=== PATIENT | female | born 1990 | race Caucasian/White ===

== ENCOUNTER 2017-12-08 20:25 | Emergency (ER) | payer OTHER ==
[2017-12-08 20:32] VITALS: RESP 18; TEMP 98.3
[2017-12-08] MEDS ORDERED: SODIUM CHLORIDE 0.9% 1,000 ML IV STA (21:05)
--- NOTE | 2017-12-08 21:32 | ED ---
Chest Pain HPI - General Chief Complaint: Chest Pain Stated Complaint: chest pressure/arm tingling Time Seen by Provider: 12/08/17 20:47 Source: patient, RN notes reviewed, old records reviewed Mode of arrival: ambulatory Limitations: no limitations - History of Present Illness Initial Comments: This is a 19-year-old female the ER for evaluation. Today she presents for evaluation regards to chest pain left-sided chest pain left arm tingling. Patient also has infection or area of redness and erythema right breast. She has no medical history does not smoke takes no significant other medications. No travel history no sick contacts no heart risk factors. Patient is denying chest pain or tingling in her left arm now. She states she is on antibiotics for abscess or infection to right breast. MD Complaint: chest pain -: days(s) (1) Onset: during rest Pain Location: substernal, left chest Pain Radiation: LUE (Paresthesia) Severity: mild Severity scale (1-10): 3 Quality: tightness Consistency: intermittent Improves With: nothing Worsens With: exertion - Related Data Home Medications Medication Instructions Recorded Confirmed Cholecalciferol [Vitamin D3] 1,000 unit PO DAILY 12/08/17 12/08/17 Cranberry Fruit Extract [Cranberry] 200 mg PO DAILY 12/08/17 12/08/17 Ferrous Sulfate [Feosol] 325 mg PO DAILY 12/08/17 12/08/17 Minocycline HCl 100 mg PO BID 12/08/17 12/08/17 Multivitamin [Multivitamins Adult 1 tab PO DAILY 12/08/17 12/08/17 Gummies] Previous Rx's Medication Instructions Recorded Sulfamethox-Tmp 800-160Mg [Bactrim 2 tab PO BID #40 tab 12/08/17 DS 800-160 mg] Allergies Allergy/AdvReac Type Severity Reaction Status Date / Time Latex, Natural Rubber Allergy Rash/Hives Verified 12/08/17 20:45 Review of Systems ROS Statement: Those systems with pertinent positive or pertinent negative responses have been documented in the HPI. ROS Other: All systems not noted in ROS Statement are negative. EKG Findings - EKG Comments: EKG Findings:: EKG shows sinus rhythm rate of 70, HI 146, QRS 70, QTc 442 Past Medical History Past Medical History: Asthma History of Any Multi-Drug Resistant Organisms: None Reported Past Surgical History: No Surgical Hx Reported Past Anesthesia/Blood Transfusion Reactions: No Reported Reaction Past Psychological History: No Psychological Hx Reported Smoking Status: Former smoker Past Alcohol Use History: Rare Past Drug Use History: None Reported General Exam - General Exam Comments Initial Comments: Right-sided breast cellulitis, folliculitis Limitations: no limitations General appearance: alert, in no apparent distress Head exam: Present: atraumatic, normocephalic, normal inspection Eye exam: Present: normal appearance, PERRL, EOMI. Absent: scleral icterus, conjunctival injection, periorbital swelling ENT exam: Present: normal exam, mucous membranes moist Neck exam: Present: normal inspection. Absent: tenderness, meningismus, lymphadenopathy Respiratory exam: Present: normal lung sounds bilaterally. Absent: respiratory distress, wheezes, rales, rhonchi, stridor Cardiovascular Exam: Present: regular rate, normal rhythm, normal heart sounds. Absent: systolic murmur, diastolic murmur, rubs, gallop, clicks GI/Abdominal exam: Present: soft, normal bowel sounds. Absent: distended, tenderness, guarding, rebound, rigid Extremities exam: Present: normal inspection, full ROM, normal capillary refill. Absent: tenderness, pedal edema, joint swelling, calf tenderness Back exam: Present: normal inspection Neurological exam: Present: alert, oriented X3, CN II-XII intact Psychiatric exam: Present: normal affect, normal mood Skin exam: Present: warm, dry, intact, normal color. Absent: rash Course Vital Signs 12/08/17 12/08/17 20:26 21:48 Temperature 98.3 F Pulse Rate 83 63 Respiratory 18 18 Rate Blood Pressure 137/94 126/79 O2 Sat by Pulse 97 98 Oximetry - Reevaluation(s) Reevaluation #1: 12/08/17 22:15 Patient remains without any significant acute symptoms Reevaluation #2: 12/08/17 22:15 Patient will switch antibiotics and can be discharged home Reevaluation #3: 12/08/17 22:15 Studies Chest x-rays negative for acute disease Chest Pain MDM - Core Measures AMI Core Measures Followed: No - MDM 19 female the ER with no risk factors for heart disease coming in with chest pain. Patient can be discharged home, patient will switch antibiotics for control of right breast cellulitis Disposition Clinical Impression: Chest pain, Cellulitis of right breast Disposition: HOME SELF-CARE Condition: Good Instructions: Chest Pain (ED), Folliculitis (ED) Prescriptions: Sulfamethox-Tmp 800-160Mg [Bactrim DS 800-160 mg] 2 tab PO BID #40 tab Is patient prescribed a controlled substance at d/c from ED?: No Referrals: Davida Nath MD [Primary Care Provider] - 1-2 days
[2017-12-08 21:34] LABS: Basophils # (A) 0.1 k/uL (0-0.2); Basophils % (A) 1 %; Eosinophils # (A) 0.3 k/uL (0-0.7); Eosinophils % (A) 3 %; HCT 42.9 % (34.0-46.0); HGB 13.4 gm/dL (11.4-16.0); Lymphocytes # (A) 3.1 k/uL (1.0-4.8); Lymphocytes % (A) 36 %; MCH 27.8 pg (25.0-35.0); MCHC 31.3 g/dL (31.0-37.0); MCV 88.9 fL (80.0-100.0); Mean Platelet Volume 8.5; Monocytes # (A) 0.4 k/uL (0-1.0); Monocytes % (A) 4 %; Neutrophils # (A) 4.6 k/uL (1.3-7.7); Neutrophils % (A) 54 %; Platelet Count 210 k/uL (150-450); RBC 4.83 m/uL (3.80-5.40); RDW 12.5 % (11.5-15.5); WBC 8.5 k/uL (3.8-10.6)
--- NOTE | 2017-12-08 21:42 | XR ---
EXAMINATION TYPE: XR chest 2V DATE OF EXAM: 12/08/2017 COMPARISON: NONE HISTORY: Chest pressure TECHNIQUE: Frontal and lateral views of the chest are obtained. FINDINGS: Heart and mediastinum are normal. Lungs are clear. Diaphragm is normal. Bony thorax is int act. Pulmonary vascularity is normal. There are chest leads. IMPRESSION: Normal chest
[2017-12-08 21:45] LABS: Creatine Kinase 154 U/L (30-135)
[2017-12-08 21:47] LABS: ALT 21 U/L (9-52); AST 20 U/L (14-36); Alkaline Phosphatase 46 U/L (38-126); Anion Gap 7 mmol/L; Blood Urea Nitrogen 12 mg/dL (7-17); Calcium 8.9 mg/dL (8.4-10.2); Carbon Dioxide 25 mmol/L (22-30); Chloride 109 mmol/L (98-107); Glucose 94 mg/dL (74-99); Lipase 48 U/L (23-300); Magnesium 2.2 mg/dL (1.6-2.3); Potassium 3.8 mmol/L (3.5-5.1); Sodium 141 mmol/L (137-145); Total Bilirubin 0.3 mg/dL (0.2-1.3); Total Protein 6.5 g/dL (6.3-8.2)
[2017-12-08 21:50] VITALS: BP 126/79; PULSE 63
[2017-12-08 21:58] LABS: Creatine Kinase MB 0.9 ng/mL (0.0-2.4); Troponin I <0.012 ng/mL (0.000-0.034)
== END 2017-12-08 22:30 | disposition home or self-care (01) ==
LOC: EC 20:25
DX: N61.0 Mastitis without abscess (principal); R07.2 Precordial pain; J45.909 Unspecified asthma, uncomplicated; Z87.891 Personal history of nicotine dependence; Z91.040 Latex allergy status
CPT/HCPCS: 36415; 71046; 80053; 82550; 82553; 83690; 83735; 83880; 84484; 85025; 85610; 85730; 93005; 96360; 99285

== ENCOUNTER 2018-01-28 19:24 | Emergency (ER) | payer OTHER ==
[2018-01-28 20:14] VITALS: PULSE 77
[2018-01-28 21:19] LABS: Basophils # (A) 0.1 k/uL (0-0.2); Basophils % (A) 1 %; Eosinophils # (A) 0.2 k/uL (0-0.7); Eosinophils % (A) 2 %; HCT 41.7 % (34.0-46.0); HGB 13.5 gm/dL (11.4-16.0); Lymphocytes # (A) 2.5 k/uL (1.0-4.8); Lymphocytes % (A) 26 %; MCH 28.1 pg (25.0-35.0); MCHC 32.5 g/dL (31.0-37.0); MCV 86.4 fL (80.0-100.0); Monocytes # (A) 0.5 k/uL (0-1.0); Monocytes % (A) 5 %; Neutrophils % (A) 65 %; Platelet Count 245 k/uL (150-450); RBC 4.82 m/uL (3.80-5.40); RDW 12.7 % (11.5-15.5); WBC 9.3 k/uL (3.8-10.6)
[2018-01-28 21:24] LABS: Appearance,Urine Clear (Clear); Bilirubin,Urine Negative (Negative); Blood,Urine Negative (Negative); Color,Urine Yellow; Glucose,Urine (UA) Negative (Negative); Ketones,Urine Negative (Negative); Leukocyte Esterase,Urine Trace (Negative); Mucus,Urine Rare /hpf; Nitrite,Urine Negative (Negative); Protein,Urine Negative (Negative); RBC,Urine 1 /hpf (0-5); Specific Gravity,Urine 1.021 (1.001-1.035); Squamous Epithelial Cell,Urine 2 /hpf (0-4); Urobilinogen,Urine <2.0 mg/dL (<2.0); WBC,Urine 1 /hpf (0-5)
[2018-01-28 21:29] LABS: ALT 27 U/L (9-52); AST 19 U/L (14-36); Albumin 4.3 g/dL (3.5-5.0); Alkaline Phosphatase 50 U/L (38-126); Anion Gap 8 mmol/L; Blood Urea Nitrogen 16 mg/dL (7-17); Calcium 9.4 mg/dL (8.4-10.2); Carbon Dioxide 27 mmol/L (22-30); Chloride 106 mmol/L (98-107); Glucose 98 mg/dL (74-99); Potassium 3.9 mmol/L (3.5-5.1); Sodium 141 mmol/L (137-145); Total Bilirubin 0.4 mg/dL (0.2-1.3); Total Protein 6.9 g/dL (6.3-8.2)
--- NOTE | 2018-01-28 22:04 | ED ---
Recheck HPI - General Chief Complaint: Recheck/Abnormal Lab/Rx Stated Complaint: Nausea Time Seen by Provider: 01/28/18 20:25 Source: patient Mode of arrival: ambulatory Limitations: no limitations - History of Present Illness Initial Comments: 27-year-old female patient presents to the emergency department today for evaluation of bilateral breast pain, nausea, and lightheadedness. Patient states that she has been having the pain to her bilateral breasts for the last couple of months. States feels like a sharp shooting pain. States that she feels presence of a lump to the left upper breast. Patient states that she does have an appointment with her [facility] in March however didn't feel that she could wait that long especially since she started having nausea and some lightheadedness intermittently. Patient denies any the symptoms today. She denies any chance of , states that she does have a control implant to the left arm. She denies any abnormal vaginal bleeding or discharge. Denies any abdominal pain, constipation, or diarrhea. Denies any dark, black, or bloody stools. Denies any chest pain or shortness of breath. Patient denies any recent rash, fever, chills, back pain, numbness, tingling, dizziness, weakness, hematuria, dysuria, urinary urgency, urinary frequency, headache, visual changes, or any other complaints. - Related Data Home Medications Medication Instructions Recorded Confirmed Cholecalciferol [Vitamin D3] 1,000 unit PO DAILY 12/08/17 12/08/17 Cranberry Fruit Extract [Cranberry] 200 mg PO DAILY 12/08/17 12/08/17 Ferrous Sulfate [Feosol] 325 mg PO DAILY 12/08/17 12/08/17 Minocycline HCl [Minocin] 100 mg PO BID 12/08/17 12/08/17 Multivitamin [Multivitamins Adult 1 tab PO DAILY 12/08/17 12/08/17 Gummies] Previous Rx's Medication Instructions Recorded Sulfamethox-Tmp 800-160Mg [Bactrim 2 tab PO BID #40 tab 12/08/17 DS 800-160 mg] Ondansetron [Zofran ODT] 4 mg PO Q8HR PRN #10 tab 01/28/18 Allergies Allergy/AdvReac Type Severity Reaction Status Date / Time Latex, Natural Rubber Allergy Rash/Hives Verified 01/28/18 20:14 Review of Systems ROS Statement: Those systems with pertinent positive or pertinent negative responses have been documented in the HPI. ROS Other: All systems not noted in ROS Statement are negative. Past Medical History Past Medical History: Asthma History of Any Multi-Drug Resistant Organisms: None Reported Past Surgical History: No Surgical Hx Reported Past Anesthesia/Blood Transfusion Reactions: No Reported Reaction Past Psychological History: No Psychological Hx Reported Smoking Status: Former smoker Past Alcohol Use History: Rare Past Drug Use History: None Reported General Exam Limitations: no limitations General appearance: alert, in no apparent distress, other (This is a well- developed, well-nourished adult female patient in no acute distress. Vital signs upon presentation are temperature 98.4F, pulse 77, respirations 18, blood pressure 137/103, pulse ox 95% on room air.) Eye exam: Present: normal appearance, PERRL, EOMI. Absent: scleral icterus, conjunctival injection, periorbital swelling ENT exam: Present: normal exam, normal oropharynx, mucous membranes moist Respiratory exam: Present: normal lung sounds bilaterally. Absent: respiratory distress, wheezes, rales, rhonchi, stridor Cardiovascular Exam: Present: regular rate, normal rhythm, normal heart sounds. Absent: systolic murmur, diastolic murmur, rubs, gallop, clicks GI/Abdominal exam: Present: soft, normal bowel sounds. Absent: distended, tenderness, guarding, rebound, rigid Neurological exam: Present: alert, oriented X3, CN II-XII intact Psychiatric exam: Present: normal affect, normal mood Skin exam: Present: warm, dry, intact, normal color, other (Bilateral breast exam was performed. No presence of lumps, masses, or tenderness. Visual inspection revealed no erythema, abscess, or rash. No drainage from the nipples.). Absent: rash Course Vital Signs 01/28/18 20:11 Temperature 98.4 F Pulse Rate 77 Respiratory 18 Rate Blood Pressure 137/103 O2 Sat by Pulse 95 Oximetry Medical Decision Making - Medical Decision Making 27-year-old female patient presents to the emergency department today with complaints of bilateral breast pain, nausea, and lightheadedness. Physical examination is unremarkable. Labs reviewed and are unremarkable. EKG showed normal sinus rhythm with a sinus arrhythmia. Patient does have an appointment with [facility] in March as well as a breast ultrasound scheduled for that time. She is urged to keep this appointment. She is instructed to follow-up with her primary care physician to further discuss the nausea and lightheadedness. She' ll be given a prescription for Zofran. Return parameters were discussed in detail. She verbalizes understanding and agrees with this plan. - Lab Data Result diagrams: 01/28/18 21:10 01/28/18 21:10 Lab Results 01/28/18 01/28/18 01/28/18 Range/Units 20:34 20:34 21:10 WBC 9.3 (3.8-10.6) k/uL RBC 4.82 (3.80-5.40) m/uL Hgb 13.5 (11.4-16.0) gm/dL Hct 41.7 (34.0-46.0) % MCV 86.4 (80.0-100.0) fL MCH 28.1 (25.0-35.0) pg MCHC 32.5 (31.0-37.0) g/dL RDW 12.7 (11.5-15.5) % Plt Count 245 (150-450) k/uL Neutrophils % 65 % Lymphocytes % 26 % Monocytes % 5 % Eosinophils % 2 % Basophils % 1 % Neutrophils # 6.0 (1.3-7.7) k/uL Lymphocytes # 2.5 (1.0-4.8) k/uL Monocytes # 0.5 (0-1.0) k/uL Eosinophils # 0.2 (0-0.7) k/uL Basophils # 0.1 (0-0.2) k/uL Sodium (137-145) mmol/L Potassium (3.5-5.1) mmol/L Chloride (98-107) mmol/L Carbon Dioxide (22-30) mmol/L Anion Gap mmol/L BUN (7-17) mg/dL Creatinine (0.52-1.04) mg/dL Est GFR (CKD-EPI)AfAm (>60 ml/min/1.73 sqM) Est GFR (CKD-EPI)NonAf (>60 ml/min/1.73 sqM) Glucose (74-99) mg/dL Calcium (8.4-10.2) mg/dL Total Bilirubin (0.2-1.3) mg/dL AST (14-36) U/L ALT (9-52) U/L Alkaline Phosphatase (38-126) U/L Total Protein (6.3-8.2) g/dL Albumin (3.5-5.0) g/dL Urine Color Yellow Urine Appearance Clear (Clear) Urine pH 6.0 (5.0-8.0) Ur Specific Chandler 1.021 (1.001-1.035) Urine Protein Negative (Negative) Urine Glucose (UA) Negative (Negative) Urine Ketones Negative (Negative) Urine Blood Negative (Negative) Urine Nitrite Negative (Negative) Urine Bilirubin Negative (Negative) Urine Urobilinogen <2.0 (<2.0) mg/dL Ur Leukocyte Esterase Trace H (Negative) Urine RBC 1 (0-5) /hpf Urine WBC 1 (0-5) /hpf Ur Squamous Epith Cells 2 (0-4) /hpf Urine Mucus Rare H (None) /hpf Urine HCG, Qual Not Detected (Not Detectd) 01/28/18 Range/Units 21:10 WBC (3.8-10.6) k/uL RBC (3.80-5.40) m/uL Hgb (11.4-16.0) gm/dL Hct (34.0-46.0) % MCV (80.0-100.0) fL MCH (25.0-35.0) pg MCHC (31.0-37.0) g/dL RDW (11.5-15.5) % Plt Count (150-450) k/uL Neutrophils % % Lymphocytes % % Monocytes % % Eosinophils % % Basophils % % Neutrophils # (1.3-7.7) k/uL Lymphocytes # (1.0-4.8) k/uL Monocytes # (0-1.0) k/uL Eosinophils # (0-0.7) k/uL Basophils # (0-0.2) k/uL Sodium 141 (137-145) mmol/L Potassium 3.9 (3.5-5.1) mmol/L Chloride 106 (98-107) mmol/L Carbon Dioxide 27 (22-30) mmol/L Anion Gap 8 mmol/L BUN 16 (7-17) mg/dL Creatinine 0.70 (0.52-1.04) mg/dL Est GFR (CKD-EPI)AfAm >90 (>60 ml/min/1.73 sqM) Est GFR (CKD-EPI)NonAf >90 (>60 ml/min/1.73 sqM) Glucose 98 (74-99) mg/dL Calcium 9.4 (8.4-10.2) mg/dL Total Bilirubin 0.4 (0.2-1.3) mg/dL AST 19 (14-36) U/L ALT 27 (9-52) U/L Alkaline Phosphatase 50 (38-126) U/L Total Protein 6.9 (6.3-8.2) g/dL Albumin 4.3 (3.5-5.0) g/dL Urine Color Urine Appearance (Clear) Urine pH (5.0-8.0) Ur Specific Chandler (1.001-1.035) Urine Protein (Negative) Urine Glucose (UA) (Negative) Urine Ketones (Negative) Urine Blood (Negative) Urine Nitrite (Negative) Urine Bilirubin (Negative) Urine Urobilinogen (<2.0) mg/dL Ur Leukocyte Esterase (Negative) Urine RBC (0-5) /hpf Urine WBC (0-5) /hpf Ur Squamous Epith Cells (0-4) /hpf Urine Mucus (None) /hpf Urine HCG, Qual (Not Detectd) - EKG Data -: EKG Interpreted by Me EKG Comments: EKG obtained at 2235 shows normal sinus rhythm with a sinus arrhythmia. Ventricular rate is 71, AK interval 156, QRS duration 72, QT 402, QTc 436. No evidence of ST elevation or depression. Disposition Clinical Impression: Breast pain, Nausea Disposition: HOME SELF-CARE Condition: Good Instructions: Acute Nausea and Vomiting (ED) Additional Instructions: Take medications as directed. Increase fluids. Follow up with your primary care physician as well as your OBGYN as you have planned. Return immediately for any new, worsening, or concerning symptoms. Prescriptions: Ondansetron [Zofran ODT] 4 mg PO Q8HR PRN #10 tab PRN Reason: Nausea Is patient prescribed a controlled substance at d/c from ED?: No Referrals: Davida Nath MD [Primary Care Provider] - 1-2 days Time of Disposition: 22:36
[2018-01-28 22:50] VITALS: BP 122/86; RESP 16; TEMP 98.3
== END 2018-01-28 22:51 | disposition home or self-care (01) ==
LOC: EC 19:24
DX: N64.4 Mastodynia (principal); R11.0 Nausea; R42 Dizziness and giddiness; Z87.891 Personal history of nicotine dependence; Z91.040 Latex allergy status
CPT/HCPCS: 36415; 80053; 81001; 81025; 85025; 93005; 99283

== ENCOUNTER 2018-02-12 18:10 | Emergency (ER) | payer OTHER ==
[2018-02-12] MEDS ORDERED: SODIUM CHLORIDE 0.9% 1,000 ML IV ONE (18:28)
--- NOTE | 2018-02-12 18:57 | ED ---
Chest Pain HPI - General Chief Complaint: Chest Pain Stated Complaint: Chest Pressure/ Congestion Source: patient Mode of arrival: ambulatory Limitations: no limitations - History of Present Illness Initial Comments: 27-year-old female with past medical history of asthma presenting for chief complaint of chest tightness times to 3 days. Patient states that she has had congestion for the past 2-3 days as well as a feeling of chest tightness and heaviness. Patient denies shortness of breath or dyspnea on exertion. In addition patient of that she woke up with a migraine this morning she stated it lasted all day however it has been improving this evening. Patient states is now only noticeable when she coughs. Patient states that she developed a cough this morning as well, states that she does cough up "phlegm" however this is clear she denies purulent sputum production. Patient denies hemoptysis, fever, chills, night sweats. In addition patient denies any upper extremity paresthesias, jaw pain,and epigastric pain or belching, calf pain, lower extremity swelling, history of cancer blood clot, eczematous estrogen use, recent travel or surgeries, IV drug use or other drug use, orthopnea, tick bites , or autoimmune disease, sore throat. Patient denies noticing any aggravating or relieving factors. Patient denies positional chest pain or recent vigorous activity. Patient denies pain patient of the chest wall. Remainder of our was negative. Upon arrival patient is well-appearing there are no signs of respiratory or acute distress. Negative Cummins sign. He shouldn't is well- appearing and does not appear toxic. Remainder of ROS (-),Patient denies any recent abdominal pain, nausea or vomiting, numbness or tingling, dysuria or hematuria, constipation or diarrhea, headaches or visual changes, or any other complaints. - Related Data Previous Rx's Medication Instructions Recorded Albuterol Inhaler [Ventolin Hfa 1 - 2 puff INHALATION RT-Q6H PRN 7 02/12/18 Inhaler] Days #1 inhaler Loratadine [Claritin] 10 mg PO DAILY 7 Days #7 tablet 02/12/18 Allergies Allergy/AdvReac Type Severity Reaction Status Date / Time Latex, Natural Rubber Allergy Rash/Hives Verified 02/12/18 18:23 Review of Systems ROS Statement: Those systems with pertinent positive or pertinent negative responses have been documented in the HPI. ROS Other: All systems not noted in ROS Statement are negative. Constitutional: Denies: fever, chills, night sweats ENT: Denies: ear pain, throat pain Respiratory: Reports: cough. Denies: dyspnea, wheezes, hemoptysis, stridor Cardiovascular: Reports: chest pain. Denies: palpitations, dyspnea on exertion , orthopnea Gastrointestinal: Denies: abdominal pain, nausea, vomiting, diarrhea, constipation, hematemesis, melena Genitourinary: Denies: urgency, dysuria, frequency, hematuria Musculoskeletal: Denies: back pain Skin: Denies: rash, lesions Neurological: Reports: headache. Denies: weakness, numbness, paresthesias, confusion, abnormal gait Psychiatric: Denies: anxiety, depression EKG Findings - EKG Comments: EKG Findings:: CT interval 150 ms, QRS duration 72 ms, QT/QTC 426/460 ms. A 12- lead EKG was performed and shows the following: Rate is 70bpm, and rhythm is sinus arrythmia. There are normal QRS complexes and normal R-wave progression. ST segments have no elevation or depression, and CT segments appear normal. Past Medical History Past Medical History: Asthma History of Any Multi-Drug Resistant Organisms: None Reported Past Surgical History: No Surgical Hx Reported Past Anesthesia/Blood Transfusion Reactions: No Reported Reaction Past Psychological History: No Psychological Hx Reported Smoking Status: Former smoker Past Alcohol Use History: Occasional Past Drug Use History: None Reported General Exam - General Exam Comments Initial Comments: General: The patient is awake and alert, in no distress, and does not appear acutely ill. Eye: Pupils are equal, round and reactive to light, extra-ocular movements are intact. No nystagmus. There is normal conjunctiva bilaterally. No signs of icterus. Ears, nose, mouth and throat: There are moist mucous membranes and no oral lesions. Neck: The neck is supple, there is no tenderness or JVD. Cardiovascular: There is a regular rate and rhythm. No murmur, rub or gallop is appreciated. Respiratory: Lungs are clear to auscultation, respirations are non-labored, breath sounds are equal. No wheezes, stridor, rales, or rhonchi. Gastrointestinal: Soft, non-distended, non-tender abdomen without masses or organomegaly noted. There is no rebound or guarding present. Bowel sounds are unremarkable. Musculoskeletal: Normal ROM, no tenderness. Strength 5/5. Sensation intact. Pulses equal bilaterally 2+. Neurological: A&O x 3. CN II-XII intact, There are no obvious motor or sensory deficits. Coordination appears grossly intact. Speech is normal. Skin: Skin is warm and dry and no rashes or lesions are noted. Psychiatric: Cooperative, appropriate mood & affect, normal judgment. Limitations: no limitations Course Vital Signs 02/12/18 02/12/18 18:16 20:15 Temperature 98 F 98.3 F Pulse Rate 81 73 Respiratory 18 16 Rate Blood Pressure 123/83 121/74 O2 Sat by Pulse 98 98 Oximetry Chest Pain MDM - MDM Patient has no risk factors for acute cardiac syndrome. Wells score 0, PERC (-) . Troponin negative. EKG no acute findings. Patient does admit to having increased stress in life, she states she thinks this may be causing it. Chest x -ray negative. At this time I feel patient is stable for discharge with primary care follow-up. Case discussed with Dr. Iniguez who agreed with impression and plan. Pt agreeable with plan. PT VS stable. Return parameters discussed at length with patient who verbalized understanding. Patient was discharged in stable condition, deny questions at this time. Disposition Clinical Impression: Chest pain, Upper respiratory infection Disposition: HOME SELF-CARE Condition: Good Instructions: Chest Pain (ED), Upper Respiratory Infection (ED) Additional Instructions: Please use medication as discussed. Please follow-up with family doctor in the next 2 day, for further evaluation. Please return to emergency room if the symptoms increase or worsen or for any other concerns. Prescriptions: Albuterol Inhaler [Ventolin Hfa Inhaler] 1 - 2 puff INHALATION RT-Q6H PRN 7 Days #1 inhaler PRN Reason: Wheezing Loratadine [Claritin] 10 mg PO DAILY 7 Days #7 tablet Is patient prescribed a controlled substance at d/c from ED?: No Referrals: Davida Nath MD [Primary Care Provider] - 1-2 days Time of Disposition: 20:01
[2018-02-12 19:05] LABS: Basophils % (A) 1 %; Eosinophils # (A) 0.2 k/uL (0-0.7); Eosinophils % (A) 3 %; HCT 42.1 % (34.0-46.0); Lymphocytes # (A) 2.2 k/uL (1.0-4.8); Lymphocytes % (A) 29 %; MCH 29.4 pg (25.0-35.0); MCHC 33.3 g/dL (31.0-37.0); MCV 88.1 fL (80.0-100.0); Mean Platelet Volume 8.1; Monocytes # (A) 0.4 k/uL (0-1.0); Monocytes % (A) 5 %; Neutrophils # (A) 4.7 k/uL (1.3-7.7); Neutrophils % (A) 61 %; Platelet Count 245 k/uL (150-450); RBC 4.78 m/uL (3.80-5.40); RDW 12.6 % (11.5-15.5); WBC 7.7 k/uL (3.8-10.6)
[2018-02-12 19:24] LABS: ALT 26 U/L (9-52); AST 19 U/L (14-36); Albumin 4.5 g/dL (3.5-5.0); Alkaline Phosphatase 51 U/L (38-126); Anion Gap 8 mmol/L; Blood Urea Nitrogen 13 mg/dL (7-17); Calcium 9.6 mg/dL (8.4-10.2); Carbon Dioxide 28 mmol/L (22-30); Chloride 106 mmol/L (98-107); Glucose 95 mg/dL (74-99); Potassium 3.7 mmol/L (3.5-5.1); Sodium 142 mmol/L (137-145); Total Bilirubin 0.6 mg/dL (0.2-1.3)
[2018-02-12 19:28] LABS: Creatine Kinase 93 U/L (30-135)
[2018-02-12 19:41] LABS: Creatine Kinase MB 0.3 ng/mL (0.0-2.4); Troponin I <0.012 ng/mL (0.000-0.034)
--- NOTE | 2018-02-12 19:45 | XR ---
EXAMINATION TYPE: XR chest 2V DATE OF EXAM: 02/12/2018 COMPARISON: 12/08/2017 HISTORY: Chest pain TECHNIQUE: Frontal and lateral views of the chest are obtained. FINDINGS: Heart and mediastinum are normal. Lungs are clear. Diaphragm is normal. Bony thorax appear s normal. IMPRESSION: Normal chest. No change.
[2018-02-12 20:16] VITALS: BP 121/74; PULSE 73; RESP 16; TEMP 98.3
== END 2018-02-12 20:16 | disposition home or self-care (01) ==
LOC: EC 18:10
DX: J06.9 Acute upper respiratory infection, unspecified (principal); R07.89 Other chest pain; F43.9 Reaction to severe stress, unspecified; J45.909 Unspecified asthma, uncomplicated; Z87.891 Personal history of nicotine dependence; Z91.040 Latex allergy status
CPT/HCPCS: 36415; 71046; 80053; 82550; 82553; 84484; 85025; 93005; 96360; 99285

== ENCOUNTER 2018-03-24 18:24 | Emergency (ER) | payer OTHER ==
--- NOTE | 2018-03-24 21:40 | CT ---
EXAMINATION TYPE: CT brain rick pastrana DATE OF EXAM: 03/24/2018 COMPARISON: None HISTORY: neck pain, no injury headache CT DLP: 1304.1 mGycm Automated exposure control for dose reduction was used. TECHNIQUE: CT scan of the head and cervical spine are performed without contrast. FINDINGS: Ventricles have normal size. There is no mass effect nor midline shift. There is no sign of intracranial hemorrhage. The calvarium is intact. There is straightening of the cervical vertebra. Disc spaces are normal. Posterior elements are intac t. Skull base is intact. There is no evidence of a fracture. Facet joints appear normal. IMPRESSION: Normal CT scan of the brain. Normal CT scan of the cervical spine.
--- NOTE | 2018-03-24 22:05 | ED ---
Neck Injury/Pain HPI - General Chief Complaint: Neck Pain/Injury Stated Complaint: neck pains/headaches Time Seen by Provider: 03/24/18 20:30 Source: RN notes reviewed, old records reviewed Mode of arrival: ambulatory Limitations: no limitations - History of Present Illness Initial Comments: 27 year old with neck pain and headache for 1 week. Multiple attemtps to see and treat with chiropractor with no relief. Patient pain comes and goes. Denies triggers for symptoms. naproxen has not helpeed. She has been taking robaxin. Here with children. Was seen at [facility] 2 days ago for same complaint. MD Complaint: neck pain - Related Data Previous Rx's Medication Instructions Recorded Albuterol Inhaler [Ventolin Hfa 1 - 2 puff INHALATION RT-Q6H PRN 7 02/12/18 Inhaler] Days #1 inhaler Loratadine [Claritin] 10 mg PO DAILY 7 Days #7 tablet 02/12/18 Dexamethasone 0.75 mg PO DAILY #12 tab 03/24/18 Allergies Allergy/AdvReac Type Severity Reaction Status Date / Time Latex, Natural Rubber Allergy Rash/Hives Verified 03/24/18 18:31 Review of Systems ROS Statement: Those systems with pertinent positive or pertinent negative responses have been documented in the HPI. ROS Other: All systems not noted in ROS Statement are negative. Past Medical History Past Medical History: Asthma History of Any Multi-Drug Resistant Organisms: None Reported Past Surgical History: No Surgical Hx Reported Past Anesthesia/Blood Transfusion Reactions: No Reported Reaction Past Psychological History: No Psychological Hx Reported Smoking Status: Former smoker Past Alcohol Use History: Occasional Past Drug Use History: None Reported General Exam - General Exam Comments Initial Comments: 27 year old female, no distress. Limitations: no limitations General appearance: alert, in no apparent distress Head exam: Present: atraumatic, normocephalic, normal inspection Eye exam: Present: normal appearance, PERRL, EOMI. Absent: scleral icterus, conjunctival injection, periorbital swelling ENT exam: Present: normal exam, mucous membranes moist Neck exam: Present: normal inspection, tenderness (superiior cervical and base of skull ). Absent: meningismus, lymphadenopathy Respiratory exam: Present: normal lung sounds bilaterally. Absent: respiratory distress, wheezes, rales, rhonchi, stridor Cardiovascular Exam: Present: regular rate, normal rhythm, normal heart sounds. Absent: systolic murmur, diastolic murmur, rubs, gallop, clicks GI/Abdominal exam: Present: soft, normal bowel sounds. Absent: distended, tenderness, guarding, rebound, rigid Neurological exam: Present: alert, oriented X3, CN II-XII intact Psychiatric exam: Present: normal affect, normal mood Skin exam: Present: warm, dry, intact, normal color. Absent: rash Course Vital Signs 03/24/18 03/24/18 18:29 22:16 Temperature 98.2 F 97.9 F Pulse Rate 79 71 Respiratory 18 16 Rate Blood Pressure 144/79 127/96 O2 Sat by Pulse 98 97 Oximetry Medical Decision Making - Medical Decision Making 27 year old neck pain, spasm, and worse with movement for 4 days. Patient given pain medication. CT scan completed, negative for fracture or symptoms source at this thime. Discussed with PCP and discussed return paramters. Warm compress andmay need referral to neurology andmay need trigger point injections. - Radiology Data Radiology results: report reviewed (negative cT brain and c spine. ) Disposition Clinical Impression: Neck sprain Disposition: HOME SELF-CARE Condition: Good Instructions: Cervical Strain (ED) Additional Instructions: Patient should continue anti-inflammatory such as Motrin or Tylenol. If he is the baclofen as prescribed earlier. Patient should follow-up with PCP possibly neurology. He may need to have injection within the muscle. Return to the emergency department if any alarming signs or symptoms occur. Prescriptions: Dexamethasone 0.75 mg PO DAILY #12 tab Is patient prescribed a controlled substance at d/c from ED?: No Referrals: Davida Nath MD [Primary Care Provider] - 1-2 days Time of Disposition: 22:04
[2018-03-24 22:18] VITALS: BP 127/96; PULSE 71; RESP 16; TEMP 97.9
== END 2018-03-24 22:19 | disposition home or self-care (01) ==
LOC: EC 18:24
DX: S13.9XXA Sprain of joints and ligaments of unspecified parts of neck, initial encounter (principal); R51 Headache; Z87.891 Personal history of nicotine dependence; Z91.040 Latex allergy status
CPT/HCPCS: 70450; 72125; 99284

== ENCOUNTER 2018-10-13 20:53 | Emergency (ER) | payer OTHER ==
[2018-10-13 21:11] VITALS: BP 126/90; PULSE 80; RESP 18; TEMP 98
--- NOTE | 2018-10-13 21:14 | ED ---
ENT HPI - General Chief complaint: ENT Stated complaint: Swollen throat Time Seen by Provider: 10/13/18 21:13 Source: patient Mode of arrival: ambulatory Limitations: no limitations - History of Present Illness Initial comments: Shaista is a 28 yo female who presents to the ER today for re-evaluation of dry mouth and foreign body sensation in her throat. patient reports feeling an odd sensation in her throat for a couple of weeks. She states that she feels like sometimes she forgets how to swallow but sometimes she has no problem, she has no problem clearing her oral secretions. Patient reports she just feels like there something there in her throat. Patient states that she saw her primary care physician about this and was told that she likely has acid reflux causing irritation she was given medications. Patient reports that today at work she felt where so she decided to come to the ER for evaluation. Patient has never been seen by ENT in the past. Patient denies any associated fevers, chills, chest pain, shortness of breath difficulty breathing, she denies any weight gain weight loss or loss. She has no history of any thyroid disorders. She has no family history of any thyroid disorders. Patient is not a smoker. She reports that she's been using cough drops for couple of days and that does seem to help. - Related Data Home Medications Medication Instructions Recorded Confirmed Ranitidine HCl [Zantac] 75 mg PO BID 10/13/18 10/13/18 Previous Rx's Medication Instructions Recorded Albuterol Inhaler [Ventolin Hfa 1 - 2 puff INHALATION RT-Q6H PRN 7 02/12/18 Inhaler] Days #1 inhaler Allergies Allergy/AdvReac Type Severity Reaction Status Date / Time Latex, Natural Rubber Allergy Rash/Hives Verified 10/13/18 21:37 Review of Systems ROS Statement: Those systems with pertinent positive or pertinent negative responses have been documented in the HPI. ROS Other: All systems not noted in ROS Statement are negative. Past Medical History Past Medical History: Asthma History of Any Multi-Drug Resistant Organisms: None Reported Past Surgical History: No Surgical Hx Reported Past Anesthesia/Blood Transfusion Reactions: No Reported Reaction Past Psychological History: No Psychological Hx Reported Smoking Status: Former smoker Past Alcohol Use History: Occasional Past Drug Use History: None Reported General Exam - General Exam Comments Initial Comments: Physical Exam GENERAL: Patient is well-developed and well-nourished. Patient is nontoxic and well-hydrated and is in no distress. HENT: Normocephalic, Atraumatic. Normal oropharynx Normal posterior oropharynx, no tonsillar exudates Normal neck exam, no thyromegaly or obvious goiter EYES: PERRL, EOMI PULMONARY: Unlabored respirations. No audible rales rhonchi or wheezing was noted. CARDIOVASCULAR: There is a regular rate and rhythm without any murmurs gallops or rubs. ABDOMEN: Soft and nontender with normal bowel sounds. SKIN: Skin is clear with no lesions or rashes and otherwise unremarkable. : Deferred NEUROLOGIC: Patient is alert and oriented x3. Moving all extremities spontaneously MUSCULOSKELETAL: Normal extremities with adequate strength and full range of motion. No lower extremity swelling or edema. No calf tenderness. PSYCHIATRIC: Normal psychiatric evaluation Limitations: no limitations Course Vital Signs 10/13/18 21:07 Temperature 98.0 F Pulse Rate 80 Respiratory 18 Rate Blood Pressure 126/90 O2 Sat by Pulse 98 Oximetry Medical Decision Making - Medical Decision Making Patient was seen and evaluated, history is obtained from patient Physical exam with no acute findings, patient has no risk factors for any oral cancers or lesions she is a nonsmoker no family history I advised the patient this time I do not think she should continue with treatment for GERD and should follow-up with ENT. Patient is agreeable with this. Patient will be referred to ENT for outpatient follow-up. Patient was provided a work note for today and discharged home in stable condition. - Lab Data Lab Results 10/13/18 Range/Units 21:25 POC Glucose (mg/dL) 128 H (75-99) mg/dL POC Glu Hub Borer ID Shaista De Paz Disposition Clinical Impression: Dry mouth, unspecified Disposition: HOME SELF-CARE Condition: Stable Instructions (If sedation given, give patient instructions): Dry Mouth (ED) Is patient prescribed a controlled substance at d/c from ED?: No Referrals: Davida Nath MD [Primary Care Provider] - 1-2 days Sandoval Preston MD [STAFF PHYSICIAN] - 1-2 days Dallin Vazquez MD [STAFF PHYSICIAN] - 1-2 days Carlos Koehler DO [Doctor of Osteopathic Medicine] - 1-2 days
[2018-10-13 21:35] LABS: Glucose,Whole Blood 128 mg/dL (75-99)
== END 2018-10-13 21:40 | disposition home or self-care (01) ==
LOC: EC 20:53
DX: R68.2 Dry mouth, unspecified (principal); R09.89 Other specified symptoms and signs involving the circulatory and respiratory systems; J39.2 Other diseases of pharynx; Z87.891 Personal history of nicotine dependence; Z79.899 Other long term (current) drug therapy; Z91.040 Latex allergy status
CPT/HCPCS: 36415; 99283

== ENCOUNTER 2018-10-17 01:36 | Emergency (ER) | payer OTHER ==
[2018-10-17 02:37] LABS: Appearance,Urine Clear (Clear); Basophils % (A) 0 %; Bilirubin,Urine Negative (Negative); Blood,Urine Negative (Negative); Color,Urine Colorless; Eosinophils # (A) 0.4 k/uL (0-0.7); Eosinophils % (A) 4 %; Glucose,Urine (UA) Negative (Negative); HCT 41.6 % (34.0-46.0); HGB 14.1 gm/dL (11.4-16.0); Ketones,Urine Negative (Negative); Leukocyte Esterase,Urine Negative (Negative); Lymphocytes # (A) 2.7 k/uL (1.0-4.8); Lymphocytes % (A) 27 %; MCH 29.6 pg (25.0-35.0); MCHC 33.9 g/dL (31.0-37.0); MCV 87.5 fL (80.0-100.0); Mean Platelet Volume 8.4; Monocytes # (A) 0.6 k/uL (0-1.0); Monocytes % (A) 6 %; Neutrophils # (A) 6.3 k/uL (1.3-7.7); Neutrophils % (A) 62 %; Nitrite,Urine Negative (Negative); Platelet Count 241 k/uL (150-450); Protein,Urine Negative (Negative); RBC 4.75 m/uL (3.80-5.40); RDW 12.6 % (11.5-15.5); Specific Gravity,Urine 1.004 (1.001-1.035); Urobilinogen,Urine <2.0 mg/dL (<2.0); WBC 10.1 k/uL (3.8-10.6)
[2018-10-17 02:47] LABS: ALT 21 U/L (9-52); AST 15 U/L (14-36); African American GFR (CKD) >90 (>60 ml/min/1.73 sqM); Alkaline Phosphatase 47 U/L (38-126); Anion Gap 6 mmol/L; Blood Urea Nitrogen 15 mg/dL (7-17); Calcium 9.1 mg/dL (8.4-10.2); Carbon Dioxide 25 mmol/L (22-30); Chloride 109 mmol/L (98-107); Glucose 88 mg/dL (74-99); Potassium 3.7 mmol/L (3.5-5.1); Sodium 140 mmol/L (137-145); Total Bilirubin 0.2 mg/dL (0.2-1.3); Total Protein 6.2 g/dL (6.3-8.2)
--- NOTE | 2018-10-17 03:36 | CT ---
EXAM: CT Neck With Intravenous Contrast CLINICAL HISTORY: ITS.REASON CT Reason: Pain TECHNIQUE: Axial computed tomography images of the neck with intravenous contrast. This CT exam was performed using one or more of the following dose reduction techniques: automated exposure control, adjustment of the mA and/or kV according to patient size, and/or use of iterative reconstruction technique. COMPARISON: No relevant prior studies available. FINDINGS: Oropharynx: Unremarkable. No significant tonsillar enlargement. No peritonsillar abscess. Hypopharynx: Unremarkable. Larynx: Unremarkable. Normal epiglottis. Trachea: Unremarkable. Retropharyngeal space: Unremarkable. Submandibular/parotid glands: Unremarkable. Glands are normal in size. Thyroid: No suspicious nodules. Bones/joints: No acute fracture. Soft tissues: Unremarkable. Vasculature: No suspicious findings. Lymph nodes: Unremarkable. No lymphadenopathy. Lung apices: Unremarkable as visualized. IMPRESSION: No acute findings.
[2018-10-17] MEDS ORDERED: SODIUM CHLORIDE 0.9% 1,000 ML IV STA (03:38)
--- NOTE | 2018-10-17 03:44 | ED ---
General Adult HPI - General Chief complaint: ENT Stated complaint: feels like throat is closing Time Seen by Provider: 10/17/18 01:52 Source: patient, RN notes reviewed, old records reviewed Mode of arrival: ambulatory Limitations: no limitations - History of Present Illness Initial comments: 28-year-old female patient, no pertinent past medical history presents to ED with chief complaint of sensation of foreign body in throat, very dry throat. Patient was evaluated here this ER approximately 1 week ago for similar complaints. Patient does have ENT Follow-up. Denies any other complaints at this time. Systemic: Pt denies fatigue, fever/chills, rash. Pt denies weakness, night sweats, weight loss. Neuro: Pt denies headache, visual disturbances, syncope or pre-syncope. HEENT: Pt denies ocular discharge or irritation, otalgia, rhinorrhea, pharyn gitis or notable lymphadenopathy. Cardiopulmonary: Pt denies chest pain, SOB, heart palpitations, dyspnea on exertion. Abdominal/GI: Pt denies abdominal pain, n/v/d. : Pt denies dysuria, burning w/ urination, frequency/urgency. Denies new onset urinary or bowel incontinence. MSK: Pt denies myalgia, loss of strength or function in extremities. Neuro: Pt denies new onset weakness, paresthesias. - Related Data Home Medications Medication Instructions Recorded Confirmed Ranitidine HCl [Zantac] 75 mg PO BID 10/13/18 10/13/18 Previous Rx's Medication Instructions Recorded Albuterol Inhaler [Ventolin Hfa 1 - 2 puff INHALATION RT-Q6H PRN 7 02/12/18 Inhaler] Days #1 inhaler Allergies Allergy/AdvReac Type Severity Reaction Status Date / Time Latex, Natural Rubber Allergy Rash/Hives Verified 10/13/18 21:37 Review of Systems ROS Statement: Those systems with pertinent positive or pertinent negative responses have been documented in the HPI. ROS Other: All systems not noted in ROS Statement are negative. Past Medical History Past Medical History: Asthma History of Any Multi-Drug Resistant Organisms: None Reported Past Surgical History: No Surgical Hx Reported Past Anesthesia/Blood Transfusion Reactions: No Reported Reaction Past Psychological History: No Psychological Hx Reported Smoking Status: Former smoker Past Alcohol Use History: Occasional Past Drug Use History: None Reported General Exam - General Exam Comments Initial Comments: Constitutional: NAD, AOX3, Pt has pleasant affect. HEENT: NC/AT, trachea midline, neck supple, no lymphadenopathy. Posterior pharynx non erythematous, without exudates. External ears appear normal, without discharge. Mucous membranes moist. Eyes PERRLA, EOM intact. There is no scleral icterus. No pallor noted. Cardiopulmonary: RRR, no murmurs, rubs or gallops, no JVD noted. Lungs CTAB in anterior and posterior jules. No peripheral edema. Abdominal exam: Abdomen soft and non-distended. Abdomen non-tender to palpation in all 4 quadrants. Bowel sounds active in LLQ. No hepatosplenomegaly. No ecchymosis Neuro: CN II-XII grossly intact. No nuchal rigidity. No raccon eyes, no low sign, no hemotympanum. No cervical spinal tenderness. MSK: No posterior calf tenderness bilaterally, homans sign negative bilaterally. Posterior tibialis and radial pulse +2 bilaterally. Sensation intact in upper and lower extremities. Full active ROM in upper and lower extremities, 5/5 stregnth. Limitations: no limitations Course Vital Signs 10/17/18 01:46 Temperature 97.9 F Pulse Rate 93 Respiratory 19 Rate Blood Pressure 146/99 O2 Sat by Pulse 99 Oximetry Medical Decision Making - Medical Decision Making 28-year-old female patient presents ED chief complaint of sensation of foreign body in throat, very dry throat - this has been ongoing for weeks. Patient vital signs stable, afebrile. Physical exam didn't display acute pathology. Posterior pharynx non-erythematous, no tonsillar enlargement, no edema. Lymph investigations noncompressive, UA negative. CT soft tissue neck with contrast displayed acute process. Patient will discharge, follow up with ENT. Will retu rn to Er if condition worsens. Case discussed with Dr. Mosher. - Lab Data Result diagrams: 10/17/18 02:20 10/17/18 02:20 Lab Results 10/17/18 10/17/18 10/17/18 Range/Units 02:20 02:20 02:20 WBC 10.1 (3.8-10.6) k/uL RBC 4.75 (3.80-5.40) m/uL Hgb 14.1 (11.4-16.0) gm/dL Hct 41.6 (34.0-46.0) % MCV 87.5 (80.0-100.0) fL MCH 29.6 (25.0-35.0) pg MCHC 33.9 (31.0-37.0) g/dL RDW 12.6 (11.5-15.5) % Plt Count 241 (150-450) k/uL Neutrophils % 62 % Lymphocytes % 27 % Monocytes % 6 % Eosinophils % 4 % Basophils % 0 % Neutrophils # 6.3 (1.3-7.7) k/uL Lymphocytes # 2.7 (1.0-4.8) k/uL Monocytes # 0.6 (0-1.0) k/uL Eosinophils # 0.4 (0-0.7) k/uL Basophils # 0.0 (0-0.2) k/uL Sodium 140 (137-145) mmol/L Potassium 3.7 (3.5-5.1) mmol/L Chloride 109 H (98-107) mmol/L Carbon Dioxide 25 (22-30) mmol/L Anion Gap 6 mmol/L BUN 15 (7-17) mg/dL Creatinine 0.75 (0.52-1.04) mg/dL Est GFR (CKD-EPI)AfAm >90 (>60 ml/min/1.73 sqM) Est GFR (CKD-EPI)NonAf >90 (>60 ml/min/1.73 sqM) Glucose 88 (74-99) mg/dL Calcium 9.1 (8.4-10.2) mg/dL Total Bilirubin 0.2 (0.2-1.3) mg/dL AST 15 (14-36) U/L ALT 21 (9-52) U/L Alkaline Phosphatase 47 (38-126) U/L Total Protein 6.2 L (6.3-8.2) g/dL Albumin 4.0 (3.5-5.0) g/dL Urine Color Urine Appearance (Clear) Urine pH (5.0-8.0) Ur Specific [place] (1.001-1.035) Urine Protein (Negative) Urine Glucose (UA) (Negative) Urine Ketones (Negative) Urine Blood (Negative) Urine Nitrite (Negative) Urine Bilirubin (Negative) Urine Urobilinogen (<2.0) mg/dL Ur Leukocyte Esterase (Negative) Urine HCG, Qual Not Detected (Not Detectd) 10/17/18 Range/Units 02:20 WBC (3.8-10.6) k/uL RBC (3.80-5.40) m/uL Hgb (11.4-16.0) gm/dL Hct (34.0-46.0) % MCV (80.0-100.0) fL MCH (25.0-35.0) pg MCHC (31.0-37.0) g/dL RDW (11.5-15.5) % Plt Count (150-450) k/uL Neutrophils % % Lymphocytes % % Monocytes % % Eosinophils % % Basophils % % Neutrophils # (1.3-7.7) k/uL Lymphocytes # (1.0-4.8) k/uL Monocytes # (0-1.0) k/uL Eosinophils # (0-0.7) k/uL Basophils # (0-0.2) k/uL Sodium (137-145) mmol/L Potassium (3.5-5.1) mmol/L Chloride (98-107) mmol/L Carbon Dioxide (22-30) mmol/L Anion Gap mmol/L BUN (7-17) mg/dL Creatinine (0.52-1.04) mg/dL Est GFR (CKD-EPI)AfAm (>60 ml/min/1.73 sqM) Est GFR (CKD-EPI)NonAf (>60 ml/min/1.73 sqM) Glucose (74-99) mg/dL Calcium (8.4-10.2) mg/dL Total Bilirubin (0.2-1.3) mg/dL AST (14-36) U/L ALT (9-52) U/L Alkaline Phosphatase (38-126) U/L Total Protein (6.3-8.2) g/dL Albumin (3.5-5.0) g/dL Urine Color Colorless Urine Appearance Clear (Clear) Urine pH 7.0 (5.0-8.0) Ur Specific [place] 1.004 (1.001-1.035) Urine Protein Negative (Negative) Urine Glucose (UA) Negative (Negative) Urine Ketones Negative (Negative) Urine Blood Negative (Negative) Urine Nitrite Negative (Negative) Urine Bilirubin Negative (Negative) Urine Urobilinogen <2.0 (<2.0) mg/dL Ur Leukocyte Esterase Negative (Negative) Urine HCG, Qual (Not Detectd) Disposition Clinical Impression: Dry throat Disposition: HOME SELF-CARE Condition: Stable Instructions (If sedation given, give patient instructions): Esophagitis (ED) Additional Instructions: Patient to adhere to previously discussed treatment plan and will take medication(s) as directed. Patient to follow up with PCP in 1-2 days. Patient to return to ED if symptoms do not improve. Follow-up with ENT tomorrow. Return to ER if condition worsens. Is patient prescribed a controlled substance at d/c from ED?: No Referrals: Davida Nath MD [Primary Care Provider] - 1-2 days Carlos Koehler DO [Doctor of Osteopathic Medicine] - 1-2 days
[2018-10-17 05:01] VITALS: BP 131/84; PULSE 74; RESP 18; TEMP 98.2
== END 2018-10-17 05:01 | disposition home or self-care (01) ==
LOC: EC 01:36
DX: J39.2 Other diseases of pharynx (principal); Z79.899 Other long term (current) drug therapy; Z87.891 Personal history of nicotine dependence; Z91.040 Latex allergy status; Z91.048 Other nonmedicinal substance allergy status
CPT/HCPCS: 36415; 80053; 85025; 81003; 81025; 70491; 99284; Q9967

== ENCOUNTER 2019-01-28 09:10 | Emergency (ER) | payer OTHER ==
[2019-01-28 09:16] VITALS: RESP 18; TEMP 98.3
[2019-01-28 09:51] LABS: Appearance,Urine Cloudy (Clear); Bilirubin,Urine Negative (Negative); Blood,Urine Negative (Negative); Color,Urine Yellow; Glucose,Urine (UA) Negative (Negative); Ketones,Urine Negative (Negative); Leukocyte Esterase,Urine Large (Negative); Mucus,Urine Moderate /hpf; Nitrite,Urine Negative (Negative); PH, Urine 6.5 (5.0-8.0); Protein,Urine Trace (Negative); RBC,Urine 2 /hpf (0-5); Specific Gravity,Urine 1.026 (1.001-1.035); Squamous Epithelial Cell,Urine 27 /hpf (0-4); Urobilinogen,Urine <2.0 mg/dL (<2.0); WBC,Urine 2 /hpf (0-5)
--- NOTE | 2019-01-28 10:09 | ED ---
Recheck HPI - General Chief Complaint: Recheck/Abnormal Lab/Rx Stated Complaint: concern STI/ Time Seen by Provider: 01/28/19 09:15 Source: patient Mode of arrival: ambulatory Limitations: no limitations - History of Present Illness Initial Comments: 28-year-old female presenting to emergency Department for chief complaint of concern for or sexually transmitted disease. Patient states after she had sex 4 days ago she has had nausea. Patient states she is concerned section transmitted diseases denies abdominal pain denies vomiting denies diarrhea denies fevers. Patient denies any other complaints. Patient's a toothache STD and testing. Remaining review systems negative upon arrival patient appears well and nontoxic acute distress per patient states she did use condoms and have explanon in her arm. - Related Data Home Medications Medication Instructions Recorded Confirmed Ranitidine HCl [Zantac] 75 mg PO BID 10/13/18 10/13/18 Previous Rx's Medication Instructions Recorded Albuterol Inhaler [Ventolin Hfa 1 - 2 puff INHALATION RT-Q6H PRN 7 02/12/18 Inhaler] Days #1 inhaler Allergies Allergy/AdvReac Type Severity Reaction Status Date / Time Latex, Natural Rubber Allergy Rash/Hives Verified 01/28/19 09:13 Review of Systems ROS Statement: Those systems with pertinent positive or pertinent negative responses have been documented in the HPI. ROS Other: All systems not noted in ROS Statement are negative. Past Medical History Past Medical History: Asthma History of Any Multi-Drug Resistant Organisms: None Reported Past Surgical History: No Surgical Hx Reported Past Anesthesia/Blood Transfusion Reactions: No Reported Reaction Past Psychological History: No Psychological Hx Reported Smoking Status: Former smoker Past Alcohol Use History: Occasional Past Drug Use History: None Reported General Exam - General Exam Comments Initial Comments: General: The patient is awake and alert, in no distress, and does not appear acutely ill. Eye: Pupils are equal, round and reactive to light, extra-ocular movements are intact. No nystagmus. There is normal conjunctiva bilaterally. No signs of icterus. Cardiovascular: There is a regular rate and rhythm. No murmur, rub or gallop is appreciated. Respiratory: Lungs are clear to auscultation, respirations are non-labored, breath sounds are equal. No wheezes, stridor, rales, or rhonchi. Gastrointestinal: Soft, non-distended, non-tender abdomen without masses or organomegaly noted. There is no rebound or guarding present. No external lesions scattered mild discharge in the vault. No cervical motion adnexal tenderness. Vaginal mucosa pink well rugated no specific order Musculoskeletal: Normal ROM, no tenderness. Strength 5/5. Sensation intact. Pulses equal bilaterally 2+. Neurological: A&O x 3. CN II-XII intact grossly, There are no obvious motor or sensory deficits. Coordination appears grossly intact. Speech is normal. Skin: Skin is warm and dry and no rashes or lesions are noted. Psychiatric: Cooperative, appropriate mood & affect, normal judgment. Limitations: no limitations Course Vital Signs 01/28/19 01/28/19 09:13 11:20 Temperature 98.3 F 98.3 F Pulse Rate 96 89 Respiratory 18 18 Rate Blood Pressure 114/79 120/80 O2 Sat by Pulse 98 98 Oximetry Medical Decision Making - Medical Decision Making Well-appearing 28 year old female presented for concern for and sex a transmitted diseases hCG negative however this would be too early for conception given patient's last time of sexual activity. STD testing pending. Patient treated prophylactically given concerns or issues condoms. Patient has no abdominal pain on physical examination. No cervical motion or adnexal tenderness at this time will discharge patient with outpatient [facility] follow-up she states she has a scheduled appointment for Tuesday. Given a repeat hCG and 1-2 weeks. - Lab Data Lab Results 01/28/19 01/28/19 01/28/19 Range/Units 09:32 09:32 10:54 Urine Color Yellow Urine Appearance Cloudy H (Clear) Urine pH 6.5 (5.0-8.0) Ur Specific [place] 1.026 (1.001-1.035) Urine Protein Trace H (Negative) Urine Glucose (UA) Negative (Negative) Urine Ketones Negative (Negative) Urine Blood Negative (Negative) Urine Nitrite Negative (Negative) Urine Bilirubin Negative (Negative) Urine Urobilinogen <2.0 (<2.0) mg/dL Ur Leukocyte Esterase Large H (Negative) Urine RBC 2 (0-5) /hpf Urine WBC 2 (0-5) /hpf Ur Squamous Epith Cells 27 H (0-4) /hpf Urine Mucus Moderate H (None) /hpf Urine HCG, Qual Not Detected (Not Detectd) Trichomonas Ag (Rapid) Negative (Negative) Disposition Clinical Impression: Concern about sexually transmitted disease in female without diagnosis, Nausea Disposition: HOME SELF-CARE Condition: Good Additional Instructions: Please use medication as discussed. Please follow-up with family doctor in the next 2 day, repeat test in 1 week. Please return to emergency room if the symptoms increase or worsen or for any other concerns. Is patient prescribed a controlled substance at d/c from ED?: No Referrals: Davida Nath MD [Primary Care Provider] - 1-2 days Time of Disposition: 10:19
[2019-01-28] MEDS ORDERED: cefTRIAXone 250 MG VIAL IM STA (10:57)
[2019-01-28] MEDS ORDERED: AZITHROMYCIN 500 MG TAB PO STA (10:57)
[2019-01-28 11:21] VITALS: BP 120/80; PULSE 89
[2019-01-29 13:17] LABS: N. gonorrhoeae,PCR Negative (Neg,Equiv); Neisseria Source Vagina
[2019-01-29 13:23] LABS: C. trachomatis,PCR Negative (Neg,Equiv); Chlamydia trachomatis Source Vagina
== END 2019-01-28 11:20 | disposition home or self-care (01) ==
LOC: EC 09:10
DX: R11.0 Nausea (principal); Z20.2 Contact with and (suspected) exposure to infections with a predominantly sexual mode of transmission; Z32.02 Encounter for pregnancy test, result negative; Z87.891 Personal history of nicotine dependence; Z91.040 Latex allergy status; Z79.899 Other long term (current) drug therapy
CPT/HCPCS: 81001; 81025; 87808; 87491; 87591; 87070; 99283; 96372; J0696

== ENCOUNTER 2019-02-01 12:12 | Emergency (ER) | payer OTHER ==
[2019-02-01 12:27] VITALS: BP 106/80; PULSE 101; RESP 18; TEMP 98.4
[2019-02-01 13:24] LABS: Appearance,Urine Cloudy (Clear); Bacteria,Urine Rare /hpf; Bilirubin,Urine Negative (Negative); Blood,Urine Negative (Negative); Color,Urine Yellow; Glucose,Urine (UA) Negative (Negative); Ketones,Urine 1+ (Negative); Leukocyte Esterase,Urine Moderate (Negative); Mucus,Urine Few /hpf; Nitrite,Urine Negative (Negative); PH, Urine 6.5 (5.0-8.0); Protein,Urine Trace (Negative); RBC,Urine 1 /hpf (0-5); Specific Gravity,Urine 1.031 (1.001-1.035); Squamous Epithelial Cell,Urine 15 /hpf (0-4)
[2019-02-01] MEDS ORDERED: ONDANSETRON 4 MG ODT STARTER PACK 2 TAB BTL PO STA (13:33)
--- NOTE | 2019-02-01 13:33 | ED ---
Nausea/Vomiting/Diarrhea HPI - General Chief complaint: Nausea/Vomiting/Diarrhea Stated complaint: Nausea here on tuesday Time Seen by Provider: 02/01/19 12:30 Source: patient Mode of arrival: ambulatory Limitations: no limitations - History of Present Illness Initial comments: Patient is a 28-year-old female presenting to the emergency Department with c omplaints of nausea for 1 week. Patient states she had intercourse for the first time in months approximately one week ago and has been having intermittent nausea ever since. Patient states she did use protection and is also on control. Patient was in the ER for same thing about 4 days ago. Patient is concerned that she might be even now tests have been negative. Patient states she has also had swabs done during her last ER visit and everything has been negative. Patient denies fever, chills, abdominal pain, vomiting, diarrhea, vaginal discharge, urinary complaints. Patient has no other complaints at this time. Upon arrival to the ER, vital signs are stable. - Related Data Home Medications Medication Instructions Recorded Confirmed Ranitidine HCl [Zantac] 75 mg PO BID 10/13/18 10/13/18 Previous Rx's Medication Instructions Recorded Albuterol Inhaler [Ventolin Hfa 1 - 2 puff INHALATION RT-Q6H PRN 7 02/12/18 Inhaler] Days #1 inhaler Allergies Allergy/AdvReac Type Severity Reaction Status Date / Time Latex, Natural Rubber Allergy Rash/Hives Verified 02/01/19 12:24 Review of Systems ROS Statement: Those systems with pertinent positive or pertinent negative responses have been documented in the HPI. ROS Other: All systems not noted in ROS Statement are negative. Past Medical History Past Medical History: Asthma History of Any Multi-Drug Resistant Organisms: None Reported Past Surgical History: No Surgical Hx Reported Past Anesthesia/Blood Transfusion Reactions: No Reported Reaction Past Psychological History: No Psychological Hx Reported Smoking Status: Former smoker Past Alcohol Use History: Occasional Past Drug Use History: None Reported General Exam - General Exam Comments Initial Comments: GENERAL: Well-appearing, well-nourished and in no acute distress. HEAD: Atraumatic, normocephalic. EYES: Pupils equal round and reactive to light, extraocular movements intact, sclera anicteric, conjunctiva are normal. ENT: TMs normal, nares patent, oropharynx clear without exudates. Moist mucous membranes. NECK: Normal range of motion, supple without lymphadenopathy or JVD. LUNGS: Breath sounds clear to auscultation bilaterally and equal. No wheezes rales or rhonchi. HEART: Regular rate and rhythm without murmurs, rubs or gallops. ABDOMEN: Soft, nontender, normoactive bowel sounds. No guarding, no rebound. No masses appreciated. : Deferred EXTREMITIES: Normal range of motion, no pitting or edema. No clubbing or cyanosis. NEUROLOGICAL: Cranial nerves II through XII grossly intact. Normal speech, normal gait. PSYCH: Normal mood, normal affect. SKIN: Warm, Dry, normal turgor, no rashes or lesions noted. Limitations: no limitations Course Vital Signs 02/01/19 12:24 Temperature 98.4 F Pulse Rate 101 H Respiratory 18 Rate Blood Pressure 106/80 O2 Sat by Pulse 98 Oximetry Medical Decision Making - Medical Decision Making Patient is a 28-year-old female presenting with nausea times one week. Vital signs are stable, afebrile. Patient was the ER 4 days ago for same complaint. Patient had negative workup then including vaginal swabs. UA today is within normal limits. Patient declined repeat vaginal exam. Patient will follow up with her OFFICE MESSENGER next week. Patient was given Zofran as needed for nausea. Patient is stable for discharge at this time and she is in agreement with this plan of care. Return parameters were discussed with the patient she verbalized understanding. - Lab Data Lab Results 02/01/19 02/01/19 Range/Units 13:00 13:00 Urine Color Yellow Urine Appearance Cloudy H (Clear) Urine pH 6.5 (5.0-8.0) Ur Specific [place] 1.031 (1.001-1.035) Urine Protein Trace H (Negative) Urine Glucose (UA) Negative (Negative) Urine Ketones 1+ H (Negative) Urine Blood Negative (Negative) Urine Nitrite Negative (Negative) Urine Bilirubin Negative (Negative) Urine Urobilinogen 3.0 (<2.0) mg/dL Ur Leukocyte Esterase Moderate H (Negative) Urine RBC 1 (0-5) /hpf Urine WBC 3 (0-5) /hpf Ur Squamous Epith Cells 15 H (0-4) /hpf Urine Bacteria Rare H (None) /hpf Urine Mucus Few H (None) /hpf Urine HCG, Qual Not Detected (Not Detectd) Disposition Clinical Impression: Nausea Disposition: HOME SELF-CARE Condition: Stable Instructions (If sedation given, give patient instructions): Acute Nausea and Vomiting (ED) Additional Instructions: Please return to the Emergency Department if symptoms worsen or any other concerns. Follow-up with OFFICE MESSENGER next week as discussed. Take Zofran as needed for nausea. Is patient prescribed a controlled substance at d/c from ED?: No Referrals: Davida Nath MD [Primary Care Provider] - 1-2 days
== END 2019-02-01 13:50 | disposition home or self-care (01) ==
LOC: EC 12:12
DX: R11.0 Nausea (principal); Z87.891 Personal history of nicotine dependence; Z53.29 Procedure and treatment not carried out because of patient's decision for other reasons; Z79.899 Other long term (current) drug therapy; Z91.040 Latex allergy status
CPT/HCPCS: 81001; 81025; 99283; S0119

== ENCOUNTER 2019-05-25 03:44 | Emergency (ER) | payer OTHER ==
[2019-05-25 03:51] VITALS: RESP 18
--- NOTE | 2019-05-25 04:06 | ED ---
SOB HPI - General Chief Complaint: Shortness of Breath Stated Complaint: SOB Time Seen by Provider: 05/25/19 03:45 Source: patient Mode of arrival: ambulatory Limitations: no limitations - History of Present Illness Initial Comments: Shaista is a 29 yo a male with a history of asthma who presents the emergency department today for evaluation of shortness of breath. Patient was seen and evaluated earlier in the week diagnosed with upper respiratory infection prescribed azithromycin and Claritin. Patient reports she's been compliant with these medications. Patient reports she's been feeling very anxious over the current coronavirus pandemic and has been unable to sleep tonight. She reports she continues to feel short of breath despite using her inhalers and trying to take a steamy shower which usually relieves her symptoms. - Related Data Home Medications Medication Instructions Recorded Confirmed Ranitidine HCl [Zantac] 75 mg PO BID 10/13/18 10/13/18 Previous Rx's Medication Instructions Recorded Albuterol Inhaler [Ventolin Hfa 1 - 2 puff INHALATION RT-Q6H PRN 7 02/12/18 Inhaler] Days #1 inhaler Ondansetron Odt [Zofran Odt] 4 mg PO Q8HR PRN #10 tab 02/01/19 Allergies Allergy/AdvReac Type Severity Reaction Status Date / Time Latex, Natural Rubber Allergy Rash/Hives Verified 02/01/19 12:24 Review of Systems ROS Statement: Those systems with pertinent positive or pertinent negative responses have been documented in the HPI. ROS Other: All systems not noted in ROS Statement are negative. Past Medical History Past Medical History: Asthma History of Any Multi-Drug Resistant Organisms: None Reported Past Surgical History: No Surgical Hx Reported Past Anesthesia/Blood Transfusion Reactions: No Reported Reaction Past Psychological History: No Psychological Hx Reported Smoking Status: Former smoker Past Alcohol Use History: Occasional Past Drug Use History: None Reported General Exam - General Exam Comments Initial Comments: Physical Exam GENERAL: Patient is well-developed and well-nourished. Patient is nontoxic and well- hydrated and is in no distress. HENT: Normocephalic, Atraumatic. EYES: PERRL, EOMI PULMONARY: Unlabored respirations. No audible rales rhonchi or wheezing was noted. CARDIOVASCULAR: There is a regular rate and rhythm without any murmurs gallops or rubs. ABDOMEN: Soft and nontender with normal bowel sounds. SKIN: Skin is clear with no lesions or rashes and otherwise unremarkable. : Deferred NEUROLOGIC: Patient is alert and oriented x3. Moving all extremities spontaneously MUSCULOSKELETAL: Normal extremities with adequate strength and full range of motion. No lower extremity swelling or edema. No calf tenderness. PSYCHIATRIC: Normal psychiatric evaluation. Limitations: no limitations Course Vital Signs 05/25/19 05/25/19 03:47 05:07 Temperature 98.3 F 98.5 F Pulse Rate 96 79 Respiratory 18 18 Rate Blood Pressure 127/87 136/97 O2 Sat by Pulse 96 100 Oximetry Medical Decision Making - Medical Decision Making The patient was seen and evaluated history is obtained from patient 29-year-old female history of asthma reporting persistent shortness of breath and anxiety, patient states that she's been very anxious due to all the news about the coronavirus On exam patient doesn't have any wheezing she's not tachycardic or tachypneic she is afebrile she has no known sick contacts or foreign travel We will obtain a chest x-ray as well as d-dimer Patient resting comfortably throughout her stay in the emergency department. Vital signs remained stable, d-dimer was not elevated, CBC CMP were unremarkable These results were discussed the patient, reinforced the patient that is unlikely as she has coronavirus at this time she should continue supportive care and follow-up with her primary care physician - Lab Data Result diagrams: 05/25/19 04:19 05/25/19 04:19 Lab Results 05/25/19 05/25/19 05/25/19 Range/Units 04:19 04:19 04:19 WBC 9.2 (3.8-10.6) k/uL RBC 4.89 (3.80-5.40) m/uL Hgb 13.9 (11.4-16.0) gm/dL Hct 43.1 (34.0-46.0) % MCV 88.1 (80.0-100.0) fL MCH 28.5 (25.0-35.0) pg MCHC 32.4 (31.0-37.0) g/dL RDW 12.1 (11.5-15.5) % Plt Count 211 (150-450) k/uL Neutrophils % 59 % Lymphocytes % 33 % Monocytes % 4 % Eosinophils % 2 % Basophils % 0 % Neutrophils # 5.4 (1.3-7.7) k/uL Lymphocytes # 3.0 (1.0-4.8) k/uL Monocytes # 0.4 (0-1.0) k/uL Eosinophils # 0.2 (0-0.7) k/uL Basophils # 0.0 (0-0.2) k/uL D-Dimer 0.19 (<0.60) mg/L FEU Sodium 138 (137-145) mmol/L Potassium 3.2 L (3.5-5.1) mmol/L Chloride 103 (98-107) mmol/L Carbon Dioxide 26 (22-30) mmol/L Anion Gap 9 mmol/L BUN 9 (7-17) mg/dL Creatinine 0.66 (0.52-1.04) mg/dL Est GFR (CKD-EPI)AfAm >90 (>60 ml/min/1.73 sqM) Est GFR (CKD-EPI)NonAf >90 (>60 ml/min/1.73 sqM) Glucose 100 H (74-99) mg/dL Calcium 9.4 (8.4-10.2) mg/dL Total Bilirubin 0.3 (0.2-1.3) mg/dL AST 19 (14-36) U/L ALT 14 (4-34) U/L Alkaline Phosphatase 47 (38-126) U/L Total Protein 7.0 (6.3-8.2) g/dL Albumin 4.7 (3.5-5.0) g/dL Disposition Clinical Impression: Upper respiratory infection Disposition: HOME SELF-CARE Condition: Stable Instructions (If sedation given, give patient instructions): Upper Respiratory Infection (ED) Is patient prescribed a controlled substance at d/c from ED?: No Referrals: Davida Nath MD [Primary Care Provider] - 1-2 days
--- NOTE | 2019-05-25 04:32 | XR ---
EXAMINATION TYPE: XR chest 2V DATE OF EXAM: 05/25/2019 COMPARISON: NONE HISTORY: Chest pain TECHNIQUE: FINDINGS: Heart and mediastinum are normal. Lungs are clear. Diaphragm is normal. Bony thorax appears normal. IMPRESSION: Normal chest. No change.
[2019-05-25 04:39] LABS: ALT 14 U/L (4-34); AST 19 U/L (14-36); African American GFR (CKD) >90 (>60 ml/min/1.73 sqM); Albumin 4.7 g/dL (3.5-5.0); Alkaline Phosphatase 47 U/L (38-126); Anion Gap 9 mmol/L; Basophils % (A) 0 %; Blood Urea Nitrogen 9 mg/dL (7-17); Calcium 9.4 mg/dL (8.4-10.2); Carbon Dioxide 26 mmol/L (22-30); Chloride 103 mmol/L (98-107); Eosinophils # (A) 0.2 k/uL (0-0.7); Eosinophils % (A) 2 %; Glucose 100 mg/dL (74-99); HCT 43.1 % (34.0-46.0); HGB 13.9 gm/dL (11.4-16.0); Lymphocytes % (A) 33 %; MCH 28.5 pg (25.0-35.0); MCHC 32.4 g/dL (31.0-37.0); MCV 88.1 fL (80.0-100.0); Mean Platelet Volume 9.9; Monocytes # (A) 0.4 k/uL (0-1.0); Monocytes % (A) 4 %; Neutrophils # (A) 5.4 k/uL (1.3-7.7); Neutrophils % (A) 59 %; Non-African American GFR(CKD) >90 (>60 ml/min/1.73 sqM); Platelet Count 211 k/uL (150-450); Potassium 3.2 mmol/L (3.5-5.1); RBC 4.89 m/uL (3.80-5.40); RDW 12.1 % (11.5-15.5); Sodium 138 mmol/L (137-145); Total Bilirubin 0.3 mg/dL (0.2-1.3); WBC 9.2 k/uL (3.8-10.6)
[2019-05-25 05:10] VITALS: BP 136/97; PULSE 79; TEMP 98.5
== END 2019-05-25 05:14 | disposition home or self-care (01) ==
LOC: EC 03:44
DX: J06.9 Acute upper respiratory infection, unspecified (principal); F41.9 Anxiety disorder, unspecified; J45.909 Unspecified asthma, uncomplicated; Z91.040 Latex allergy status; Z87.891 Personal history of nicotine dependence
CPT/HCPCS: 36415; 71046; 80053; 85025; 85379; 99285

== ENCOUNTER → 2019-08-08 | Outpatient (CLI) | payer OTHER ==
--- NOTE | 2019-08-08 12:00 | ECHOF ---
Referral Reason:R55 syncope MEASUREMENTS -------- HEIGHT: 160.0 cm WEIGHT: 65.8 kg BP: RVIDd: 3.1 cm (< 3.3) IVSd: 0.9 cm (0.6 - 1.1) LVIDd: 3.9 cm (3.9 - 5.3) LVPWd: 1.3 cm (0.6 - 1.1) IVSs: 1.4 cm LVIDs: 2.4 cm LVPWs: 1.8 cm LAESV Index (A-L): 26.38 ml/m Ao Diam: 2.4 cm (2.0 - 3.7) AV Cusp: 1.7 cm (1.5 - 2.6) MV EXCURSION: 12.755 mm (> 18.000) MV EF SLOPE: 91 mm/s (70 - 150) EPSS: 0.5 cm MV E Favio: 1.18 m/s MV DecT: 254 ms MV A Favio: 0.92 m/s MV E/A Ratio: 1.29 RAP: 5.00 mmHg RVSP: 27.36 mmHg FINDINGS -------- Sinus rhythm. This was a technically good study. The left ventricular size is normal. Left ventricular wall thickness is normal. Overall left vent ricular systolic function is normal with, an EF between 55 - 60 %. The diastolic filling pattern is normal for the age of the patient 17.04. The right ventricle is normal in size. Normal LA size by volume 22+/-6 ml/m2. The right atrial size is normal. Interatrial and interventricular septum intact. There is no evidence of aortic regurgitation. There is no evidence of aortic stenosis. Mild mitral regurgitation is present. Trace tricuspid regurgitation present. There is no evidence of pulmonary hypertension. The right ventricular systolic pressure, as measured by Doppler, is 27.36mmHg. There is no pulmonic regurgitation present. The aortic root size is normal. Normal inferior vena cava with normal inspiratory collapse consistent with estimated right atrial pre ssure of 5 mmHg. There is no pericardial effusion. CONCLUSIONS -------- 1. Sinus rhythm. 2. This was a technically good study. 3. The left ventricular size is normal. 4. Left ventricular wall thickness is normal. 5. Overall left ventricular systolic function is normal with, an EF between 55 - 60 %. 6. The diastolic filling pattern is normal for the age of the patient 17.04 7. The right ventricle is normal in size. 8. Normal LA size by volume 22+/-6 ml/m2. 9. The right atrial size is normal. 10. Interatrial and interventricular septum intact. 11. There is no evidence of aortic regurgitation. 12. There is no evidence of aortic stenosis. 13. Mild mitral regurgitation is present. 14. Trace tricuspid regurgitation present. 15. There is no evidence of pulmonary hypertension. 16. The right ventricular systolic pressure, as measured by Doppler, is 27.36mmHg. 17. There is no pulmonic regurgitation present. 18. The aortic root size is normal. 19. Normal inferior vena cava with normal inspiratory collapse consistent with estimated right atrial pressure of 5 mmHg. 20. There is no pericardial effusion. REPAIRER GENERAL: Linette Oleary RDCS
== END | disposition home or self-care (01) ==
LOC: RADECHMAIN 11:04
PROVIDERS: ATTEND Internal Medicine
DX: I34.0 Nonrheumatic mitral (valve) insufficiency (principal); Z91.040 Latex allergy status
CPT/HCPCS: 93306

== ENCOUNTER 2020-08-09 23:22 | Emergency (ER) | payer OTHER ==
--- NOTE | 2020-08-10 00:36 | ED ---
Recheck HPI - General Chief Complaint: Recheck/Abnormal Lab/Rx Stated Complaint: Broke contraceptive implant in arm Time Seen by Provider: 08/10/20 00:01 Source: patient, RN notes reviewed, old records reviewed Mode of arrival: ambulatory Limitations: no limitations - History of Present Illness Initial Comments: This is a 30-year-old female who was doing some work moving bumped into one of the furniture is with her left arm. She has have placed her think she may have broken it. Otherwise she is asymptomatic MD Complaint: wound re-check (Left arm implanon), suture/staple removal -: hour(s) Returns Today for: persistent/worsening pain related to initial visit Symptoms Since Prior Visit: no new symptoms Associated Symptoms: none Treatments Prior to Arrival: other medications - Related Data Home Medications Medication Instructions Recorded Confirmed raNITIdine HCL [Zantac] 75 mg PO BID 10/13/18 10/13/18 Previous Rx's Medication Instructions Recorded Albuterol Inhaler (Mhu) [Ventolin 1 - 2 puff INHALATION RT-Q6H PRN 7 02/12/18 Hfa Inhaler (Mhu)] Days #1 inhaler Ondansetron Odt [Zofran Odt] 4 mg PO Q8HR PRN #10 tab 02/01/19 Allergies Allergy/AdvReac Type Severity Reaction Status Date / Time Latex, Natural Rubber Allergy Rash/Hives Verified 08/09/20 23:44 Review of Systems ROS Statement: Those systems with pertinent positive or pertinent negative responses have been documented in the HPI. ROS Other: All systems not noted in ROS Statement are negative. Past Medical History Past Medical History: Asthma History of Any Multi-Drug Resistant Organisms: None Reported Past Surgical History: No Surgical Hx Reported Past Anesthesia/Blood Transfusion Reactions: No Reported Reaction Past Psychological History: No Psychological Hx Reported Smoking Status: Never smoker Past Alcohol Use History: Occasional Past Drug Use History: None Reported General Exam - General Exam Comments Initial Comments: Left arm does have Implanon foreign body Limitations: no limitations General appearance: alert, in no apparent distress Head exam: Present: atraumatic, normocephalic, normal inspection Eye exam: Present: normal appearance, PERRL, EOMI. Absent: scleral icterus, conjunctival injection, periorbital swelling ENT exam: Present: normal exam, mucous membranes moist Neck exam: Present: normal inspection. Absent: tenderness, meningismus, lymphadenopathy Respiratory exam: Present: normal lung sounds bilaterally. Absent: respiratory distress, wheezes, rales, rhonchi, stridor Cardiovascular Exam: Present: regular rate, normal rhythm, normal heart sounds. Absent: systolic murmur, diastolic murmur, rubs, gallop, clicks GI/Abdominal exam: Present: soft, normal bowel sounds. Absent: distended, tenderness, guarding, rebound, rigid Extremities exam: Present: normal inspection, full ROM, normal capillary refill. Absent: tenderness, pedal edema, joint swelling, calf tenderness Back exam: Present: normal inspection Neurological exam: Present: alert, oriented X3, CN II-XII intact Psychiatric exam: Present: normal affect, normal mood Skin exam: Present: warm, dry, intact, normal color. Absent: rash Course Vital Signs 08/09/20 08/10/20 23:42 01:33 Temperature 98.1 F 98.4 F Pulse Rate 89 84 Respiratory 20 15 Rate Blood Pressure 132/90 131/68 O2 Sat by Pulse 99 98 Oximetry - Reevaluation(s) Reevaluation #1: 08/22/20 05:03Medical record is reviewed Patient symptoms adequately improving control Patient informed results and questions have been answered Medical Decision Making - Medical Decision Making 30 female who thinks she may have broken her implants, Implanon in her left arm. It does not appear to be broken on x-ray we'll follow up with OB - Radiology Data Radiology results: report reviewed (X-ray left humerus does show foreign body, intact), image reviewed Disposition Clinical Impression: Normal exam Narrative: Possible Fracture of Nexplanon Disposition: HOME SELF-CARE Condition: Good Instructions (If sedation given, give patient instructions): Etonogestrel (Implant) Is patient prescribed a controlled substance at d/c from ED?: No Referrals: Antonella Mahan DO [Doctor of Osteopathic Medicine] - 1-2 days
--- NOTE | 2020-08-10 01:00 | XR ---
EXAM: XR Left Humerus, 2 or More Views CLINICAL HISTORY: ITS.REASON XR Reason: foreign body TECHNIQUE: Frontal and lateral views of the left humerus. COMPARISON: No previous study. FINDINGS: Bones/joints: Left humerus is unremarkable. Left shoulder joint is intact. No acute fracture or dislocation. Soft tissues: A 4.6 cm linear tubular structure is noted within the soft tissues about the mid left humerus possibly a control delivery device. Correlation with history is advised. IMPRESSION: 1. Tubular structure within the soft tissues at the level of the mid left upper extremity possibly a control delivery device. Correlation with history is advised to 2. No acute fracture or dislocation.
[2020-08-10 01:35] VITALS: BP 131/68; PULSE 84; RESP 15; TEMP 98.4
== END 2020-08-10 01:33 | disposition home or self-care (01) ==
LOC: EC 23:22
DX: Z00.8 Encounter for other general examination (principal); J45.909 Unspecified asthma, uncomplicated
CPT/HCPCS: 99282